=== PATIENT | female | born 1950 | race Caucasian/White ===

== ENCOUNTER → 2019-11-06 | Outpatient (CLI) | payer MEDICARE, BC ==
[~2019-11-06] MED LIST: AMIT50 PO; FURO20 PO; Hydrochlorothia25 MG PO; METO25; NICO7 TOP; OLME20 PO
[2019-11-06 17:09] LABS: BASOPHILS ABSOLUTE AUTO 0.04 K/mm3 (0.00-0.23); BASOPHILS PERCENT AUTO 1 % (0-2); EOSINOPHILS ABSOLUTE AUTO 0.27 K/mm3 (0.00-0.68); EOSINOPHILS PERCENT AUTO 4 % (0-6); Hematocrit 42.9 % (33.0-51.0); Hemoglobin 14.5 g/dL (11.5-16.0); IMMATURE GRAN ABSOLUTE AUTO 0.02 K/mm3 (0.00-0.10); IMMATURE GRAN PERCENT AUTO 0 % (0-1); LYMPHOCYTES PERCENT AUTO 22 % (21-46); MONOCYTES ABSOLUTE AUTO 0.58 K/mm3 (0.16-1.47); MONOCYTES PERCENT AUTO 8 % (4-13); Mean Corpuscular HGB 31.8 pg (26.0-34.0); Mean Corpuscular HGB Conc 33.8 g/dL (31.5-36.5); Mean Corpuscular Volume 94 fL (80-100); Mean Platelet Volume 10.2 fL (9.1-12.4); NEUTROPHILS ABSOLUTE AUTO 4.76 K/mm3 (1.96-9.15); NEUTROPHILS PERCENT AUTO 65 % (41-73); Platelet Count 174 K/mm3 (150-400); RDW Coefficient Variation 13.4 % (11.7-14.2); RDW Standard Deviation 45.6 fL (35.1-46.3); Red Blood Cell Count 4.56 M/mm3 (3.80-5.20); White Blood Cell Count 7.27 K/mm3 (4.00-11.30)
[2019-11-06 17:21] LABS: Alanine Aminotransfer (ALT/SGP 32 U/L (12-78); Albumin, Blood 3.9 g/dL (3.4-5.0); Albumin/Globulin Ratio 1.1 (0.8-1.8); Alk Phos 78 U/L (40-126); Anion Gap 9 mmol/L (6-16); Aspartate Aminotrans (AST/SGOT 25 U/L (12-37); Bilirubin, Total 0.4 mg/dL (0.1-1.0); Blood Urea Nitrogen 18 mg/dL (8-24); Bun/Creatinine Ratio 26.1 (12.0-20.0); CO2, Blood 28 mmol/L (21-32); Chloride, Blood 105 mmol/L (98-108); Creatinine, Blood 0.69 mg/dL (0.40-1.00); Globulin, Blood 3.5 g/dL (2.2-4.0); Glomerular Filtration Rate >60 (60-); Glucose, Blood 100 mg/dL (70-99); Potassium, Blood 3.9 mmol/L (3.5-5.5); Sodium, Blood 142 mmol/L (136-145); Total Protein, Blood 7.4 g/dL (6.4-8.2); Troponin I <0.017 ng/mL (0.000-0.040)
== END | disposition home or self-care (01) ==
LOC: LAB EV 17:05 → LAB SHORT 17:05
PROVIDERS: General Practice
DX: I10 Essential (primary) hypertension (principal)
CPT/HCPCS: 80053; 83880; 84484; 85025; 85379

== ENCOUNTER → 2020-03-13 | Outpatient (CLI) | payer MEDICARE, BC | LOC: LAB SHORT 11:40 → LAB EV 11:40 | DX: R35.0 Frequency of micturition (principal) | CPT/HCPCS: 87077; 87086; 87147; 87186 ==

== ENCOUNTER 2020-06-21 15:34 | Emergency (ER) | payer MEDICARE, BC ==
[~2020-06-21] VITALS: Ht 162.6 cm; Wt 113.4 kg
[2020-06-21 16:30] LABS: BASOPHILS ABSOLUTE AUTO 0.07 K/mm3 (0.00-0.23); BASOPHILS PERCENT AUTO 1 % (0-2); EOSINOPHILS ABSOLUTE AUTO 0.27 K/mm3 (0.00-0.68); EOSINOPHILS PERCENT AUTO 3 % (0-6); Hematocrit 47.3 % (33.0-51.0); Hemoglobin 15.9 g/dL (11.5-16.0); IMMATURE GRAN ABSOLUTE AUTO 0.04 K/mm3 (0.00-0.10); IMMATURE GRAN PERCENT AUTO 0 % (0-1); LYMPHOCYTES ABSOLUTE AUTO 2.03 K/mm3 (0.84-5.20); LYMPHOCYTES PERCENT AUTO 22 % (21-46); MONOCYTES ABSOLUTE AUTO 0.68 K/mm3 (0.16-1.47); MONOCYTES PERCENT AUTO 7 % (4-13); Mean Corpuscular HGB 31.2 pg (26.0-34.0); Mean Corpuscular HGB Conc 33.6 g/dL (31.5-36.5); Mean Corpuscular Volume 93 fL (80-100); Mean Platelet Volume 10.3 fL (9.1-12.4); NEUTROPHILS ABSOLUTE AUTO 6.28 K/mm3 (1.96-9.15); NEUTROPHILS PERCENT AUTO 67 % (41-73); Platelet Count 177 K/mm3 (150-400); RDW Standard Deviation 41.2 fL (35.1-46.3); White Blood Cell Count 9.37 K/mm3 (4.00-11.30)
[2020-06-21 16:53] LABS: Alanine Aminotransfer (ALT/SGP 61 U/L (12-78); Albumin, Blood 3.4 g/dL (3.4-5.0); Albumin/Globulin Ratio 0.9 (0.8-1.8); Alk Phos 81 U/L (50-136); Anion Gap 7 mmol/L (6-16); Aspartate Aminotrans (AST/SGOT 37 U/L (12-37); Bilirubin, Total 0.3 mg/dL (0.1-1.0); Blood Urea Nitrogen 24 mg/dL (8-24); Bun/Creatinine Ratio 33.3 (12.0-20.0); CO2, Blood 29 mmol/L (21-32); Chloride, Blood 105 mmol/L (98-108); Creatinine, Blood 0.72 mg/dL (0.40-1.00); Globulin, Blood 3.8 g/dL (2.2-4.0); Glomerular Filtration Rate >60 (60-); Glucose, Blood 107 mg/dL (70-99); Potassium, Blood 3.6 mmol/L (3.5-5.5); Sodium, Blood 141 mmol/L (136-145); Total Protein, Blood 7.2 g/dL (6.4-8.2); Troponin I 0.032 ng/mL (0.000-0.040)
== END 2020-06-21 17:58 | disposition home or self-care (01) ==
LOC: ER 15:34
PROVIDERS: Physician Assistant
DX: I48.0 Paroxysmal atrial fibrillation (principal); I10 Essential (primary) hypertension; Z79.899 Other long term (current) drug therapy; Z88.5 Allergy status to narcotic agent; Z87.891 Personal history of nicotine dependence
CPT/HCPCS: 71046; 80053; 84484; 85025; 93005; 93010; 99285-25

== ENCOUNTER 2020-10-31 11:01 | Day surgery (SDC) | payer MEDICARE, BC ==
[~2020-10-31] VITALS: Ht 162.6 cm; Wt 112.5 kg
[2020-10-31] MEDS ORDERED: CARV3.125 PO (11:34)
[2020-10-31] MEDS ORDERED: XARELTO20 MG PO (11:35)
[2020-10-31] MEDS ORDERED: ATOR20 PO (11:36)
--- NOTE | 2020-10-31 12:11 | NUR ---
10/31/20 1211 Aura Somers PT UPDATED IN DELAY IN START TIME MD BAXTER IS DELAYED 1.5-2.0 HOURS IN THE OR. PT GIVEN THE OPTION TO RESCHEDULE OR WAIT AND IS IS WAITING KNOWING OF THE LENGTH OF THE DELAY.
--- NOTE | 2020-10-31 14:41 | NUR ---
10/31/20 1441 Aura Somers AFTER ENTERING THE SCOPE AT 1437, SATS DECREASED TO 74% ON 15L O2 VIA MASK. SCOPE OUT AND ORAL AIRWAY PLACED BY MD WONG. SATS BACK UP TO 98% ON 15L O2 VIA MASK, ORAL AIRWAY OUT, SCOPE BACK IN.
== END 2020-10-31 15:17 | disposition home or self-care (01) ==
LOC: ORSCSDS 11:01
PROVIDERS: Surgery
PROC: 0DB68ZX Excision of Stomach, Via Natural or Artificial Opening Endoscopic, Diagnostic (ICD-10-PCS; principal; 2020-10-31 12:15)
DX: R12 Heartburn (principal); K44.9 Diaphragmatic hernia without obstruction or gangrene; G47.33 Obstructive sleep apnea (adult) (pediatric); I10 Essential (primary) hypertension; F32.9 Major depressive disorder, single episode, unspecified; E78.5 Hyperlipidemia, unspecified; I48.0 Paroxysmal atrial fibrillation; E11.9 Type 2 diabetes mellitus without complications; Z79.01 Long term (current) use of anticoagulants; Z79.899 Other long term (current) drug therapy; Z87.891 Personal history of nicotine dependence
CPT/HCPCS: 82947; 88305; 88341; 88342; J2704; J7120

== ENCOUNTER → 2022-07-17 | Outpatient (CLI) | payer MEDICARE, BC ==
[~2022-07-17] MED LIST changes: +ATOR20 PO; +CARV3.125 PO; +XARELTO20 MG PO
== END ==
LOC: LAB SHORT 15:44 → LAB 15:44
DX: N39.0 Urinary tract infection, site not specified (principal)
CPT/HCPCS: 87086

== ENCOUNTER 2023-01-31 13:17 | Emergency (ER) | payer MEDICARE, BC ==
[~2023-01-31] VITALS: Ht 167.6 cm; Wt 112.0 kg
[~2023-01-31 13:17] MED LIST changes: -BUME1 PO; -CARV25 PO; -ESCI10 PO; -SPIR25 PO
[2023-01-31] MEDS ORDERED: SPIR25 PO (14:19)
[2023-01-31] MEDS ORDERED: BUME1 PO (14:20)
[2023-01-31] MEDS ORDERED: CARV25 PO (14:20)
[2023-01-31] MEDS ORDERED: ESCI10 PO (14:21)
[2023-01-31] MEDS ORDERED: XARELTO20 MG PO (14:22)
[2023-01-31 14:28] LABS: BASOPHILS ABSOLUTE AUTO 0.03 K/mm3 (0.00-0.23); BASOPHILS PERCENT AUTO 1 % (0-2); EOSINOPHILS ABSOLUTE AUTO 0.05 K/mm3 (0.00-0.68); EOSINOPHILS PERCENT AUTO 1 % (0-6); Hematocrit 41.3 % (33.0-51.0); Hemoglobin 14.1 g/dL (11.5-16.0); IMMATURE GRAN ABSOLUTE AUTO 0.04 K/mm3 (0.00-0.10); IMMATURE GRAN PERCENT AUTO 1 % (0-1); LYMPHOCYTES ABSOLUTE AUTO 1.04 K/mm3 (0.84-5.20); LYMPHOCYTES PERCENT AUTO 17 % (21-46); MONOCYTES ABSOLUTE AUTO 0.41 K/mm3 (0.16-1.47); MONOCYTES PERCENT AUTO 7 % (4-13); Mean Corpuscular HGB 33.4 pg (26.0-34.0); Mean Corpuscular HGB Conc 34.1 g/dL (31.5-36.5); Mean Corpuscular Volume 98 fL (80-100); Mean Platelet Volume 10.5 fL (9.1-12.4); NEUTROPHILS ABSOLUTE AUTO 4.57 K/mm3 (1.96-9.15); NEUTROPHILS PERCENT AUTO 74 % (41-73); Platelet Count 161 K/mm3 (150-400); RDW Coefficient Variation 13.5 % (11.7-14.2); RDW Standard Deviation 48.5 fL (35.1-46.3); Red Blood Cell Count 4.22 M/mm3 (3.80-5.20); White Blood Cell Count 6.14 K/mm3 (4.00-11.30)
[2023-01-31 14:40] LABS: International Normalized Ratio 1.04; Prothrombin Time Results 10.9 Sec (9.7-11.5)
[2023-01-31 14:47] LABS: Albumin, Blood 3.3 g/dL (3.4-5.0); Bilirubin, Total 0.6 mg/dL (0.1-1.0); Bun/Creatinine Ratio 23.5 (12.0-20.0); Calcium, Blood 8.8 mg/dL (8.5-10.1); Creatinine, Blood 0.81 mg/dL (0.40-1.00); Globulin, Blood 3.4 g/dL (2.2-4.0); Potassium, Blood 3.4 mmol/L (3.5-5.5); Total Protein, Blood 6.7 g/dL (6.4-8.2)
[2023-01-31 15:15] VITALS: BP 146/80
== END 2023-01-31 16:03 | disposition home or self-care (01) ==
LOC: ER 13:17
PROVIDERS: Physician Assistant
DX: R07.89 Other chest pain (principal); R11.2 Nausea with vomiting, unspecified; R77.8 Other specified abnormalities of plasma proteins; I10 Essential (primary) hypertension; Z88.5 Allergy status to narcotic agent; Z79.899 Other long term (current) drug therapy
CPT/HCPCS: 80053; 84484; 85025; 85610; 93005; 93010; 99284-25

== ENCOUNTER → 2023-01-31 | Outpatient (CLI) | payer MEDICARE, BC ==
[~2023-01-31] MED LIST changes: +BUME1 PO; +CARV25 PO; +ESCI10 PO; +SPIR25 PO
[2023-01-31 10:25] LABS: BASOPHILS ABSOLUTE AUTO 0.03 K/mm3 (0.00-0.23); BASOPHILS PERCENT AUTO 0 % (0-2); EOSINOPHILS ABSOLUTE AUTO 0.06 K/mm3 (0.00-0.68); EOSINOPHILS PERCENT AUTO 1 % (0-6); Hematocrit 42.1 % (33.0-51.0); Hemoglobin 14.4 g/dL (11.5-16.0); IMMATURE GRAN ABSOLUTE AUTO 0.06 K/mm3 (0.00-0.10); IMMATURE GRAN PERCENT AUTO 1 % (0-1); LYMPHOCYTES ABSOLUTE AUTO 1.09 K/mm3 (0.84-5.20); LYMPHOCYTES PERCENT AUTO 14 % (21-46); MONOCYTES ABSOLUTE AUTO 0.56 K/mm3 (0.16-1.47); MONOCYTES PERCENT AUTO 7 % (4-13); Mean Corpuscular HGB 33.6 pg (26.0-34.0); Mean Corpuscular HGB Conc 34.2 g/dL (31.5-36.5); Mean Corpuscular Volume 98 fL (80-100); Mean Platelet Volume 10.3 fL (9.1-12.4); NEUTROPHILS ABSOLUTE AUTO 5.75 K/mm3 (1.96-9.15); NEUTROPHILS PERCENT AUTO 76 % (41-73); Platelet Count 152 K/mm3 (150-400); RDW Coefficient Variation 13.6 % (11.7-14.2); RDW Standard Deviation 49.2 fL (35.1-46.3); Red Blood Cell Count 4.29 M/mm3 (3.80-5.20); White Blood Cell Count 7.55 K/mm3 (4.00-11.30)
[2023-01-31 10:44] LABS: Bun/Creatinine Ratio 22.1 (12.0-20.0); Calcium, Blood 9.3 mg/dL (8.5-10.1); Creatinine, Blood 0.86 mg/dL (0.40-1.00); Potassium, Blood 3.5 mmol/L (3.5-5.5)
== END ==
LOC: LAB SHORT 10:19 → LAB 10:19
PROVIDERS: Chiropractor
DX: R07.89 Other chest pain (principal)
CPT/HCPCS: 80048; 83735; 84484; 85025

== ENCOUNTER → 2023-03-10 | Outpatient (CLI) | payer MEDICARE, BC ==
[~2023-03-10] MED LIST changes: +BUME1 PO; +CARV25 PO; +ESCI10 PO; +SPIR25 PO
== END ==
LOC: LAB 14:28 → LAB SHORT 14:28
DX: N39.0 Urinary tract infection, site not specified (principal)
CPT/HCPCS: 87077; 87086; 87186

== ENCOUNTER 2023-09-26 18:17 | Emergency (ER) | payer MEDICARE ==
[~2023-09-26] VITALS: Ht 162.6 cm; Wt 108.9 kg
[~2023-09-26 18:17] MED LIST changes: +Cymbalta20 MG PO; +OXYC5 PO; +PROM25 PO; +SULTRIDS PO
[2023-09-26] MEDS ORDERED: Prochlorperazine Edisylate 10 mg Vial IV ONE (18:50)
[2023-09-26] MEDS ORDERED: Prochlorperazin10 MG PO (19:45)
[2023-09-26 20:30] VITALS: BP 151/69
== END 2023-09-26 20:40 | disposition home or self-care (01) ==
LOC: ER 18:17
DX: S09.90XA Unspecified injury of head, initial encounter (principal); M25.461 Effusion, right knee; W01.10XA Fall on same level from slipping, tripping and stumbling with subsequent striking against unspecified object, initial encounter; Z88.5 Allergy status to narcotic agent; Z79.899 Other long term (current) drug therapy; I10 Essential (primary) hypertension; E78.5 Hyperlipidemia, unspecified; Z87.891 Personal history of nicotine dependence
CPT/HCPCS: 70450; 73562-RT; 96374; 99285-25; J0780

== ENCOUNTER 2023-12-11 07:32 | Day surgery (SDC) | payer MEDICARE ==
[~2023-12-11] VITALS: Ht 162.6 cm; Wt 111.4 kg
[2023-12-11] VITALS (15 sets, daily range): BP systolic 139–164; BP diastolic 71–91
[~2023-12-11 07:32] MED LIST changes: +Prochlorperazin10 MG PO
[2023-12-11] MEDS ORDERED: Vancomycin HCL 1,000 MG in NS 250 ML IV SCH ×2 (09:25→09:35)
[2023-12-11] MEDS ORDERED: CeFAZolin Sodium 2,000 MG in NS 100 ML IV SCH ×2 (09:25→19:00)
[2023-12-11] MEDS ORDERED: Ropivacaine 0.5% HCl/Pf 123.125 MG,EPINEPHrine HCL 0.25 MG,Ketorolac Tromethamine 15 MG... INFIL SCH (09:25)
[2023-12-11] MEDS ORDERED: Tranexamic Acid 100 ML IV SCH (09:25)
[2023-12-11] MEDS ORDERED: Lactated Ringer's 1,000 ML IV SCH ×2 (09:25→10:25)
[2023-12-11] MEDS ORDERED: Acetaminophen 500 MG Tab ONE (09:41)
[2023-12-11] MEDS ORDERED: Chlorhexidine Mouth Care 15 ML UDC MT SCH (09:45)
[2023-12-11] MEDS ORDERED: OxyCODONE HCL 10 MG TABCR PO SCH (09:45)
[2023-12-11] MEDS ORDERED: Acetaminophen 500 MG Tab PO SCH ×2 (09:45→16:00)
[2023-12-11] MEDS ORDERED: Promethazine HCl 25 MG Tab PO PRN (10:20)
[2023-12-11] MEDS ORDERED: DiphenhydrAMINE HCL 25 MG Cap PO PRN (10:20)
[2023-12-11] MEDS ORDERED: HYDROmorphone HCl/Pf 1MG SYR IV PRN ×2 (10:20→11:50)
[2023-12-11] MEDS ORDERED: Bisacodyl 10 MG Supp PR PRN (10:25)
[2023-12-11] MEDS ORDERED: Metoclopramide HCl 5MG / ML 2ML Vial IV PRN (10:25)
[2023-12-11] MEDS ORDERED: Magnesium Hydroxide Conc 10 ML UDC PO PRN (10:25)
[2023-12-11] MEDS ORDERED: Ondansetron HCl 2 MG / ML 2ML Vial IV PRN (10:25)
[2023-12-11] MEDS ORDERED: OxyCODONE HCL 5 MG TAB PO PRN ×2 (10:30)
[2023-12-11] MEDS ORDERED: FentaNYL Citrate 50 MCG/ML 2 ML Injection ONE (10:39)
[2023-12-11] MEDS ORDERED: propofoL 20 ML IV ONE (10:39)
[2023-12-11] MEDS ORDERED: Rocuronium Bromide 10 MG/ML 5ML Injection IV ONE ×2 (10:46→12:21)
[2023-12-11] MEDS ORDERED: Insulin Regular 100 UNIT/ML 10ML Vial SC SCH (11:30)
[2023-12-11] MEDS ORDERED: Ketorolac Tromethamine 30mg Vial ONE (11:45)
[2023-12-11] MEDS ORDERED: Dexamethasone Sod Phos 10 MG/ML 1ML VIAL ONE (11:45)
[2023-12-11] MEDS ORDERED: Ondansetron HCl 2 MG / ML 2ML Vial ONE (11:45)
[2023-12-11] MEDS ORDERED: Albuterol 2.5 MG/3 ML VIAL INH PRN (11:50)
[2023-12-11] MEDS ORDERED: FentaNYL Citrate 50 MCG/ML 2 ML Injection IV PRN (11:50)
[2023-12-11] MEDS ORDERED: Droperidol 5 mg/2 ml Vial IV PRN (11:50)
[2023-12-11] MEDS ORDERED: Vancomycin HCl 1000 MG ADDvantage ONE (12:07)
[2023-12-11] MEDS ORDERED: HYDROmorphone HCl/Pf 1MG SYR ONE (12:22)
[2023-12-11] MEDS ORDERED: Sugammadex Sodium 200 MG/2ML SDV (100 MG/ML) ONE (12:33)
[2023-12-11] MEDS ORDERED: Prochlorperazine Maleate 5 MG Tab PO PRN (12:35)
[2023-12-11] MEDS ORDERED: Carvedilol 25 MG Tab PO SCH (17:00)
[2023-12-11] MEDS ORDERED: Ketorolac Tromethamine 15mg Vial IV SCH (18:00)
--- NOTE | 2023-12-11 19:13 | NUR ---
SHIFT SUMMARY POD0 R QUAD TENDON REPAIR, A/OX4, VSS, TOLERATING PO, PAIN WELL MANAGED, ABLE TO AMBULATE WITH FWW/GB AND SBA, VOIDING INDEPENDENTLY, IMMOBILIZER TO R KNEE, POLAR PACK IN PLACE UNDER IMMOBILIZER. NO ACUTE EVENTS THIS SHIFT, CALL LIGHT IN REACH.
[2023-12-11] MEDS ORDERED: ADALAT CC30 M1 PO (19:54)
[2023-12-11] MEDS ORDERED: NIFEdipine 30 MG TabCR PO SCH (20:35)
[2023-12-11] MEDS ORDERED: Spironolactone 25 MG Tab PO SCH (21:00)
[2023-12-11] MEDS ORDERED: Docusate Sodium 100 MG Cap PO SCH (21:00)
[2023-12-11] MEDS ORDERED: Vancomycin HCL 1,000 MG in NS 250 ML IV ONE (22:00)
[2023-12-12 02:01] VITALS: BP 127/69
[2023-12-12 05:37] LABS: BASOPHILS ABSOLUTE AUTO 0.02 K/mm3 (0.00-0.23); BASOPHILS PERCENT AUTO 0 % (0-2); EOSINOPHILS PERCENT AUTO 0 % (0-6); Hematocrit 31.5 % (33.0-51.0); Hemoglobin 10.3 g/dL (11.5-16.0); IMMATURE GRAN ABSOLUTE AUTO 0.07 K/mm3 (0.00-0.10); IMMATURE GRAN PERCENT AUTO 1 % (0-1); LYMPHOCYTES ABSOLUTE AUTO 0.82 K/mm3 (0.84-5.20); LYMPHOCYTES PERCENT AUTO 6 % (21-46); MONOCYTES ABSOLUTE AUTO 0.65 K/mm3 (0.16-1.47); MONOCYTES PERCENT AUTO 5 % (4-13); Mean Corpuscular HGB 30.9 pg (26.0-34.0); Mean Corpuscular HGB Conc 32.7 g/dL (31.5-36.5); Mean Corpuscular Volume 95 fL (80-100); Mean Platelet Volume 10.2 fL (9.1-12.4); NEUTROPHILS ABSOLUTE AUTO 11.88 K/mm3 (1.96-9.15); NEUTROPHILS PERCENT AUTO 89 % (41-73); Platelet Count 193 K/mm3 (150-400); RDW Coefficient Variation 12.4 % (11.7-14.2); RDW Standard Deviation 42.9 fL (35.1-46.3); Red Blood Cell Count 3.33 M/mm3 (3.80-5.20); White Blood Cell Count 13.44 K/mm3 (4.00-11.30)
[2023-12-12 06:03] LABS: Bun/Creatinine Ratio 41.3 (12.0-20.0); Calcium, Blood 8.1 mg/dL (8.5-10.1); Creatinine, Blood 0.63 mg/dL (0.40-1.00); Potassium, Blood 3.9 mmol/L (3.5-5.5)
[2023-12-12 07:15] VITALS: BP 120/71
--- NOTE | 2023-12-12 07:34 | NUR ---
SHIFT SUMMARY NOC. PT POD 1 FOR RIGHT QUAD TENDON REPAIR. PT A/O X4, VOIDING URINE, AND TOLERATING PO INTAKE. PT MEDICATED FOR NAUSEA X1 AND PAIN THIS SHIFT WITH REPORTED RELIEF. PT'S STEVE DRESSING, IMMOBILIZER, AND POLAR PACK ARE C/D/I. PT AMBULATORY TO BATHROOM WITH 50% WT BEARING STATUS ON RLE. USES WALKER, GAIT BELT AND SBA. NO COVERAGE NEEDED FOR BLOOD SUGARS THIS SHIFT. PT RESTED WITH EYES CLOSED AND CALL LIGHT IN REACH.
[2023-12-12] MEDS ORDERED: Rivaroxaban 10 MG Tab PO SCH (09:00)
[2023-12-12] MEDS ORDERED: Losartan Potassium 50 MG Tab PO SCH (09:00)
[2023-12-12] MEDS ORDERED: Bumetanide 1 MG Tab PO SCH (09:00)
[2023-12-12] MEDS ORDERED: Atorvastatin 10 MG Tab PO SCH (09:00)
[2023-12-12] MEDS ORDERED: Trimethoprim/Sulfamethoxazole DS Tab PO SCH (09:00)
[2023-12-12] MEDS ORDERED: Citalopram Hydrobromide 20 MG Tab PO SCH (09:00)
--- NOTE | 2023-12-12 14:18 | NUR ---
REPORT PHONED TO SILVIANO AT [facility]. PT IS IN AGREEMENT WITH DISCHARGE PLAN.
[2023-12-12 14:51] VITALS: BP 134/79
--- NOTE | 2023-12-12 15:07 | NUR ---
DIASCHARGED VIA WHEELCHAIR TRANSPORT WITH [facility] TO [facility]. RIGHT KNEE DRESSING CLEAN, DRY AND INTACT. R KNEE IMMOBILIZER IN PLACE. ARISTIDES PO FOOD AND FLUIDS WITHOUT NAUSEA. VOIDING CLEAR YELLOW URINE, PT DENIES FEELING CONSTIPATED
== END 2023-12-12 15:06 ==
LOC: ORD 07:32 → ORSCMMR 07:32 → ORD 08:30 → SURS 13:44 → ORD 12-12 15:06 → ORSCMMR 12-12 15:06 → SURS 12-12 15:06
PROVIDERS: Orthopaedic Surgery
PROC: 0LML0ZZ Reattachment of Right Upper Leg Tendon, Open Approach (ICD-10-PCS; principal; 2023-12-11 08:30)
DX: S76.121A Laceration of right quadriceps muscle, fascia and tendon, initial encounter (principal); W18.30XA Fall on same level, unspecified, initial encounter; Z96.651 Presence of right artificial knee joint; I48.91 Unspecified atrial fibrillation; Z79.01 Long term (current) use of anticoagulants; G47.33 Obstructive sleep apnea (adult) (pediatric); J44.9 Chronic obstructive pulmonary disease, unspecified; I10 Essential (primary) hypertension; Z87.891 Personal history of nicotine dependence; Z79.899 Other long term (current) drug therapy; E66.01 Morbid (severe) obesity due to excess calories; Z68.41 Body mass index [BMI] 40.0-44.9, adult
CPT/HCPCS: 36415; 73560-RT; 80048; 82947; 83735; 85025; 87070; 87075; 87205; 94660; 94760; 97110; 97116; 97162; 97530; A9270; J0171; J0690; J0735; J1100; J1170; J1885; J2405; J2704; J2795; J3010; J3370; J7050; J7120